=== PATIENT | female | born 1995 | race Caucasian/White ===

== ENCOUNTER 2024-08-12 10:44 | Emergency (ER) | payer MEDICAID ==
[~2024-08-12] VITALS: Ht 157.5 cm; Wt 90.7 kg
[2024-08-12 10:51] VITALS: O2SAT 99
[2024-08-12 13:04] LABS: CLARITY URINE CLOUDY (CLEAR); COLOR URINE YELLOW (YELLOW); GLUCOSE URINE NEGATIVE (NEGATIVE); KETONES URINE NEGATIVE (NEGATIVE); LEUKOCYTE ESTERASE URINE 3+ (NEGATIVE); NITRITE URINE POSITIVE (NEGATIVE); OCCULT BLOOD URINE 2+ (NEGATIVE); PROTEIN URINE TRACE (NEGATIVE); SPECIFIC GRAVITY URINE 1.011 (1.005-1.030); UROBILINOGEN URINE 0.2 E.U./dL (0.2-1.0)
[2024-08-12] MEDS ORDERED: NITR-87 MT (13:13)
[2024-08-12 13:21] LABS: BACTERIA URINE 3+; SQUAMOUS EPITHELIAL CELL URINE FEW /lpf (RARE/1+); WBC URINE 50-100 /hpf (0-2)
[2024-08-12 14:23] VITALS: BP 127/71; PULSE 88; RESP 18; TEMP 36.83628; O2SAT 99
== END 2024-08-12 14:24 ==
LOC: ER 10:44
DX: N39.0 Urinary tract infection, site not specified (principal); Z88.0 Allergy status to penicillin
CPT/HCPCS: 81003; 81025; 87077; 87186; 99283

== ENCOUNTER 2024-10-28 12:16 | Emergency (ER) | payer MEDICAID, OTHER ==
[~2024-10-28] VITALS: Ht 157.5 cm; Wt 104.3 kg
[~2024-10-28 12:16] MED LIST: NITR-87 MT
[2024-10-28 12:33] VITALS: TEMP 98.3; O2SAT 99
[2024-10-28] MEDS: ACETAMINOPHEN 650MG/20.3ML UDC PO ONE (15:47)
[2024-10-28] MEDS ORDERED: PENI500T MT (17:17)
[2024-10-28] MEDS ORDERED: AZIT250T12 MT (17:21)
[2024-10-28 17:22] VITALS: BP 135/83; PULSE 79; RESP 16; O2SAT 99
== END 2024-10-28 17:26 | disposition home or self-care (01) ==
LOC: ER 13:33
DX: J02.0 Streptococcal pharyngitis (principal); Z88.0 Allergy status to penicillin
CPT/HCPCS: 87430; 99283